=== PATIENT | male | born 1970 | race Caucasian/White ===

== ENCOUNTER 2019-01-19 13:13 | Emergency (ER) | payer BC ==
[2019-01-19 14:51] VITALS: BP 142/81
--- NOTE | 2019-01-19 15:00 | UC ---
Lower Extremity/Ankle HPI - HPI Summary HPI Summary: Patient is a 48 year old gentleman, who present today to the urgent care with left foot pain for past 2 days. He reports that on 01/17/19 , he was at home laying out a new floor, when his foot slipped and his toes all cured up except the big toe. Pain is mainly located in the MTP joint area with associated swelling and some redness on the dorsal aspect of the foot. Main pain is on the plantar side. He denies any other symptoms. - History of Current Complaint Chief Complaint: UCLowerExtremity Stated Complaint: L FOOT INJURY Time Seen by Provider: 01/19/19 14:57 Hx Obtained From: Patient Pain Intensity: 4 - Allergies/Home Medications Allergies/Adverse Reactions: Allergies Allergy/AdvReac Type Severity Reaction Status Date / Time No Known Allergies Allergy Verified 01/19/19 14:51 Home Medications: Home Medications Levothyroxine TAB* [Synthroid TAB*] 75 mcg PO 0800 01/19/19 [History Confirmed 01/19/19] Losartan TAB* [Cozaar TAB*] 50 mg PO DAILY 01/19/19 [History Confirmed 01/19/19] Metformin HCl 1,000 mg PO BID 01/19/19 [History Confirmed 01/19/19] Mv-Mn/Folic Acid/Lutein/Uez005 [Mens Multivit High Potency Tab] 1 each PO DAILY 01/19/19 [History Confirmed 01/19/19] PMH/Surg Hx/FS Hx/Imm Hx - Additional Past Medical History Additional PMH: Diabetes mellitus type 2 Hypertension Hypothyroidism Previously Healthy: Yes - Surgical History Surgical History: Yes Surgery Procedure, Year, and Place: R shoulder- x 2. hernia - Social History Alcohol Use: Rare Substance Use Type: None Smoking Status (MU): Current Some Day Smoker Type: Cigars Amount Used/How Often: occasional - Immunization History Most Recent Influenza Vaccination: not this season Review of Systems All Other Systems Reviewed And Are Negative: Yes Constitutional: Positive: Negative Skin: Positive: Negative Eyes: Positive: Negative ENT: Positive: Negative Respiratory: Positive: Negative Cardiovascular: Positive: Negative Gastrointestinal: Positive: Negative Genitourinary: Positive: Negative Motor: Positive: Negative Neurovascular: Positive: Negative Musculoskeletal: Positive: Arthralgia - Left foot MTP joints, Decreased ROM, Edema - Left foot Neurological: Positive: Negative Psychological: Positive: Negative Is Patient Immunocompromised?: No Physical Exam - Summary Physical Exam Summary: Physical Exam: Const: Appears well. No signs of apparent distress present. Alert and oriented x 3. Musculo: Walks with an antalgic gait Head/Face: Atraumatic, normocephalic on inspection. Eyes: EOMI and PERRLA in both eyes. Conjunctivae clear. No discharge noted ENT: Hearing normal Respiratory: Respirations are unlabored. CVS: Regular rate and Rhythm, S1S2 normal , no murmurs identified. Extremities: Peripheral circulation is grossly normal. Pulses 2+ Abdomen : Soft non tender Skin: No lesions or rash located on the upper extremities or on the lower extremities. Neuro: Cranial nerves II to XII intact, motor and sensory intact. DTR Intact bilaterally. Mood is normal. Affect is normal. Left Ankle/Feet examination: Ankle: Inspection/palpation: No bruising, swelling or crepitus noted. There is no tenderness Ankle mortise appears intact. ROM: full AROM: Full dorsiflexion(20 deg), Full plantar flexion(50 deg) Strength: 5/5 with dorsiflexion, plantarflexion, inversion and eversion Left Feet: Insp/Palp: Mild swelling and erythema noted on the dorsal aspect of the left foot on the distal aspect . There is tenderness to palpation on the second third and fourth MTP joint, on the plantar aspect more than the dorsal aspect. He is able to call his toes and extend them fully but it is painful. Strength: EHL 5/5 blaterally Skin: No scars, rashes 2+ posterior tibial and dorsalis pedis pulse bilaterally. Neuro: Sensation to light touch is intact in the lower extremities bilaterally. Coordination normal. Triage Information Reviewed: Yes Vital Signs: Initial Vital Signs Temp 97.9 F 01/19/19 14:42 Pulse 65 01/19/19 14:42 Resp 16 01/19/19 14:42 BP 142/81 01/19/19 14:42 Pulse Ox 97 01/19/19 14:42 Vital Signs Reviewed: Yes Diagnostics - Radiology No standard instances Radiology Interpretation Completed By: Radiologist - Left foot x-ray: No cortical disruption or suspicious trabecular irregularity to suggest fracture. Normal articular alignment. 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 Moderate plantar fascia origin bone spur without gross change. Increased dystrophic calcification at the plantar fascia 2 cm distal to the origin. Unremarkable soft tissue contours. IMPRESSION : #. Negative for fracture or dislocation Lower Extremity Course/Dx - Course Course Of Treatment: During the visit today, we obtained x-ray of the foot which was negative for any fracture . We discussed the findings and further plan. Plan to keep him in the cam boot walker and he will follow up with orthopedics he has seen Dr. Rose in the past and plans to follow up there. Patient expressed understanding . - Differential Dx/Diagnosis Provider Diagnosis: Capsulitis of metatarsophalangeal (MTP) joint of left foot, Sprain of foot, left Discharge - Sign-Out/Discharge Documenting (check all that apply): Patient Departure All imaging exams completed and their final reports reviewed: Yes - Discharge Plan Condition: Stable Disposition: HOME Patient Education Materials: Foot Sprain (ED) Referrals: Agata Ernst [Primary Care Provider] - Ángela Rose MD [Medical Doctor] - 1 Week Additional Instructions: Please start using the cam boot walker all the time Follow up with orthopedics within a week. Ibuprofen as needed for pain, ice it 15 minutes at a time 3-4 times a day. Keep moving your toes to prevent stiffness Patients blood pressure slightly high in Urgent care today , plan follow up with PCP within one month for better control Return to Urgent care / ER if symptoms get worse. - Billing Disposition and Condition Condition: STABLE Disposition: Home
== END 2019-01-19 16:22 | disposition home or self-care (01) ==
LOC: UCCORT 13:13
DX: M77.52 Other enthesopathy of left foot and ankle (principal); S93.602A Unspecified sprain of left foot, initial encounter; E11.9 Type 2 diabetes mellitus without complications; I10 Essential (primary) hypertension; E03.9 Hypothyroidism, unspecified; F17.210 Nicotine dependence, cigarettes, uncomplicated; Z79.899 Other long term (current) drug therapy; Z79.84 Long term (current) use of oral hypoglycemic drugs; W18.40XA Slipping, tripping and stumbling without falling, unspecified, initial encounter; Y92.009 Unspecified place in unspecified non-institutional (private) residence as the place of occurrence of the external cause
CPT/HCPCS: 99213; G0463